=== PATIENT | female | born 1990 | race Caucasian/White ===

== ENCOUNTER 2021-05-04 19:35 | Emergency (ER) | payer OTHER, SELFPAY ==
[2021-05-04 19:35] VITALS: BP 112/87; PULSE 122; RESP 20; TEMP 36.8; O2SAT 95; BMI 25.2
[2021-05-04 19:48] VITALS: BP 138/91; PULSE 121; RESP 18; O2SAT 93
--- NOTE | 2021-05-04 19:55 | EX.ED.DYSGE1 ---
HPI History of Present Illness Chief Complaint: Allergic Reaction Informant: patient Narrative Narrative: Patient was stung by multiple bees about 45 minutes ago. She has never had an anaphylactic reaction. She is always had local reactions. She states this time she has local reactions but she feels as though she is getting some diffuse itching. No chest pain abdominal pain nausea vomiting or trouble breathing. No trouble swallowing. No change in voice. She has never had anaphylaxis to any compounds. She has not tried any treatments or meds. Nothing makes this better or worse. PFSH PFSH Home Medications oxycodone-acetaminophen 1 - 2 tab PO Q6H PRN PRN #20 tab 08/15/16 [Rx Last Taken Unknown] diphenhydramine HCl [Benadryl] 25 mg PO Q6H #20 cap 05/04/21 [Rx Last Taken Unknown] famotidine [Pepcid] 20 mg PO DAILY #5 tab 05/04/21 [Rx Last Taken Unknown] prednisone 60 mg PO DAILY #12 tab 05/04/21 [Rx Last Taken Unknown] Allergy/AdvReac Type Severity Reaction Status Date / Time Penicillins Allergy Unknown Verified 08/14/16 23:24 Social History Smoking Status: Current every day smoker tobacco type: cigarettes ROS ROS ED Constitutional Constitutional ED: Denies fever(s) Eyes Eyes: Denies blurry vision or diplopia ENT ENT ED: Denies sore throat Cardiovascular Cardiovascular: Reports other Details: Although her heart rate is increased, she does not feel this. ; Denies chest pain, palpitations or racing heartbeat Respiratory/Chest Respiratory/Chest: Denies cough, dyspnea or dyspnea on exertion Gastrointestinal Gastrointestinal: Denies abdominal pain, diarrhea, nausea or vomiting Genitourinary Genitourinary ED: Denies dysuria Musculoskeletal Musculoskeletal: Denies myalgias Integumentary Reports rash and other Details: See history of present illness Neurologic Neurologic: Denies paresthesias Allergic/Immunologic Allergic/Immunologic ED: Denies mouth swelling or tongue swelling EXAM Physical Exam Const Vital Signs: 05/04/21 19:35 05/04/21 19:48 05/04/21 20:03 Temperature 98.3 F Temperature Source Temporal Pulse Rate 122 H 121 H 111 H Respiratory Rate 20 H 18 15 Blood Pressure 112/87 H 138/91 H 128/93 H Blood Pressure Mean 95 106 104 Pulse Ox 95 93 94 Oxygen Delivery Method Room Air Room Air Room Air Positive well nourished and well developed Constitutional Narrative: Patient sitting back in bed quite comfortable. She carries on a normal conversation. General Appearance ED: well developed and NAD HEENT Reports moist mucous membranes HEENT Narrative: Oropharynx is completely normal. Voice is normal. Eyes General Eye ED: Negative for pale conjunctiva or scleral icterus Neck Neck Narrative: No stridor Resp normal respiratory effort and clear to auscultation bilaterally Auscultation: Negative for wheezes Cardio regular rate and regular rhythm GI normal to inspection, nondistended, normoactive bowel sounds and non-tender Palpation: soft Back/Spine no CVA tenderness Extremity Extremity Narrative: Patient has a area of erythema and slight swelling on the right anterior grimaldo of the right posterior thigh. No stinger is found. Neuro oriented x3 Sensorium / Orientation: alert Psych mental status grossly normal Skin Skin Narrative: Patient has 2 sting guzmán on the right leg as above. She also has a couple on her back. None of these show a stinger. She does have some diffuse mild hives/erythema. This is blanching. MDM MDM MDM Narrative Medical decision making narrative: Patient was given Benadryl, Pepcid and prednisone. Her symptoms are improving. Her itch is totally gone. The erythema is decreasing. The sting areas look the same but the rest of the skin is much less red. Plan will be to get the patient home. We will continue her on meds. She was told that if she has any worsening she should call 911 to come back. I do not think she needs an epinephrine pen. She had some mild hives after multiple stings with no systemic symptoms. Also, her heart rate is now 95. Discharge Plan Triage Chief Complaint: Allergic Reaction ED Provider: Dayo Granda Dx/Rx/DC Orders Clinical Impression: Hymenoptera sting Instructions: ED BEE STING General Allergic Rxn Prescriptions: New diphenhydramine HCl [Benadryl] 25 mg capsule 25 mg PO Q6H Qty: 20 RF: 0 famotidine [Pepcid] 20 mg tablet 20 mg PO DAILY Qty: 5 RF: 0 prednisone 20 MG tablet 60 mg PO DAILY Qty: 12 RF: 0 No Action oxycodone-acetaminophen 1 TABLET tablet 1 - 2 tab PO Q6H PRN PRN (Reason: Pain) Qty: 20 RF: 0 Primary Care Provider: Care Physician,No Primary Referrals: Steve Tejeda, PA [PHYSICIAN [employer]IC [employer]ITIC] - 1-2 Days if not improving Disposition Disposition: Home, Self Care
[2021-05-04] MEDS: DiphenhydrAMINE 25 MG Capsule 50 MG PO (19:59)
[2021-05-04] MEDS: Famotidine 20 MG Tablet PO (20:00)
[2021-05-04] MEDS: predniSONE 20 MG Tablet 60 MG PO (20:00)
[2021-05-04 20:03] VITALS: BP 128/93; PULSE 111; RESP 15; O2SAT 94
[2021-05-04 20:45] VITALS: BP 122/88; PULSE 103; RESP 13; O2SAT 96
[2021-05-04 21:11] VITALS: BP 128/93; PULSE 104; RESP 18; O2SAT 97
== END 2021-05-04 21:17 | disposition home or self-care (01) ==
PROVIDERS: Emergency Provider Emergency Medicine
DX: T63.441A Toxic effect of venom of bees, accidental (unintentional), initial encounter (principal); Y92.9 Unspecified place or not applicable; R00.0 Tachycardia, unspecified; F17.210 Nicotine dependence, cigarettes, uncomplicated
CPT/HCPCS: 99284